=== PATIENT | male | born 1955 | race Caucasian/White ===

== ENCOUNTER 2017-03-08 06:50 | Inpatient (IN) | payer BC ==
[~2017-03-08] VITALS: Ht 170.2 cm; Wt 86.2 kg
[2017-03-08] MEDS ORDERED: ACETAMINOPHEN 500 MG TABLET PO ONE (07:15)
[2017-03-08] MEDS ORDERED: GABAPENTIN 300 MG CAPSULE PO ONE (07:15)
[2017-03-08] MEDS ORDERED: CELECOXIB 200 MG CAPSULE PO ONE (07:15)
[2017-03-08] MEDS ORDERED: CEFAZOLIN SOD 2 GM in D5W 50 ML IV ONE (07:15)
[2017-03-08] MEDS ORDERED: TRANEXAMIC ACID 650 MG TABLET PO ONE (07:15)
[2017-03-08] MEDS ORDERED: oxyCODONE HCL 10 MG TAB.ER.12H PO ONE ×2 (07:15→07:36)
[2017-03-08] MEDS ORDERED: ACETAMINOPHEN 500 MG TABLET ONE (07:35)
[2017-03-08] MEDS ORDERED: CELECOXIB 200 MG CAPSULE ONE (07:44)
[2017-03-08] MEDS ORDERED: GABAPENTIN 300 MG CAPSULE ONE (07:44)
[2017-03-08] MEDS ORDERED: TRANEXAMIC ACID 650 MG TABLET ONE (07:44)
[2017-03-08] MEDS ORDERED: AMLO2.5T2 PO (08:33)
[2017-03-08] MEDS ORDERED: LISI-600 PO (08:33)
[2017-03-08] MEDS ORDERED: ROPIVACAINE 0.2% 550 ML INJ SCH (09:22)
[2017-03-08] MEDS ORDERED: DIPHENHYDRAMINE HCL 50 MG CAPSULE PO PRN (09:30)
[2017-03-08] MEDS ORDERED: SENNOSIDES 8.6 MG TABLET PO PRN (09:30)
[2017-03-08] MEDS ORDERED: PROMETHAZINE HCL 25 MG/ML AMP IVP PRN (09:30)
[2017-03-08] MEDS ORDERED: POLYMYXIN 500,000/BACIT.10,000 UNITS in NS IRR 1 L IR ONE (09:44)
[2017-03-08] MEDS ORDERED: LR 1,000 ML IV ONE (11:51)
[2017-03-08] MEDS ORDERED: NALBUPHINE HCL 10 MG/ML AMP IVP PRN (12:00)
[2017-03-08] MEDS ORDERED: fentaNYL CITRATE/PF 100 MCG/2 ML AMP IVP PRN ×2 (12:00→17:45)
[2017-03-08] MEDS ORDERED: KETOROLAC TROMETHAMINE 30 MG VIAL IM PRN (12:00)
[2017-03-08] MEDS ORDERED: NALOXONE HCL 0.4 MG/ML AMP (NARCAN) IVP PRN (12:00)
[2017-03-08] MEDS ORDERED: DIPHENHYDRAMINE INJ 50 MG/ML VIAL IVP PRN (12:00)
[2017-03-08] MEDS ORDERED: ePHEDrine sulfate 50 MG/ML VIAL IVP PRN (12:00)
[2017-03-08] MEDS ORDERED: ONDANSETRON HCL 4 MG/2 ML VIAL IVP PRN ×2 (12:00)
[2017-03-08 13:45] VITALS: BP_SYST 122
[2017-03-08] MEDS: oxyCODONE HCL 5 MG TABLET PO PRN (14:03)
[2017-03-08] MEDS: D5LR 1,000 ML IV SCH ×2 (14:05→21:40)
[2017-03-08] MEDS: CEFAZOLIN 1 GM IVPB PREMIX 50 ML IV SCH ×2 (15:07→21:40)
[2017-03-08] MEDS: ACETAMINOPHEN 500 MG TABLET PO SCH ×2 (15:08→20:31)
[2017-03-08 15:50] VITALS: BP_SYST 122
[2017-03-08] MEDS: KETOROLAC TROMETHAMINE 30 MG VIAL IVP PRN (16:44)
[2017-03-08 17:18] VITALS: BP_SYST 110
[2017-03-08] MEDS: MORPHINE 4 MG/ML INJ. SYRINGE IVP PRN (17:52)
[2017-03-08] MEDS: RIVAROXABAN 10 MG TABLET PO SCH (17:53)
[2017-03-08 20:00] VITALS: BP_SYST 114
[2017-03-08] MEDS: CELECOXIB 200 MG CAPSULE PO SCH (20:29)
[2017-03-08] MEDS: GABAPENTIN 300 MG CAPSULE PO SCH (20:30)
[2017-03-09 01:25] VITALS: BP_SYST 121
[2017-03-09] MEDS: KETOROLAC TROMETHAMINE 30 MG VIAL IVP PRN ×2 (05:07→12:06)
[2017-03-09] MEDS: CEFAZOLIN 1 GM IVPB PREMIX 50 ML IV SCH (05:08)
[2017-03-09] MEDS: D5LR 1,000 ML IV SCH ×2 (05:11→20:52)
[2017-03-09 05:36] VITALS: BP_SYST 118
[2017-03-09 06:37] LABS: CALCIUM 8.3 mg/dL (8.4-11.0); CREATININE 1.01 mg/dL (0.55-1.30); POTASSIUM 3.9 mmol/L (3.5-5.1)
[2017-03-09 06:40] LABS: BASOPHILS # (AUTO) 0.1 K/uL (0.0-0.2); BASOPHILS % (AUTO) 0.5 % (0.0-2.0); EOSINOPHILS # (AUTO) 0.1 K/uL (0.0-0.4); EOSINOPHILS % (AUTO) 1.1 % (0.0-4.0); HEMOGLOBIN 12.7 g/dL (12.0-16.0); LYMPHOCYTES # (AUTO) 1.6 K/uL (1.0-5.5); LYMPHOCYTES % (AUTO) 14.6 % (20.5-51.5); MEAN CORPUSCULAR HEMOGLOBIN 31 pg (27-31); MEAN CORPUSCULAR HGB CONC 34 % (32-36); MEAN CORPUSCULAR VOLUME 92 fL (79.0-98.0); MONOCYTES % (AUTO) 8.6 % (1.7-9.3); NEUTROPHILS # (AUTO) 8.3 K/uL (1.8-7.7); NEUTROPHILS % (AUTO) 75.2 % (40.0-70.0); PLATELET COUNT (AUTO) 177 K/uL (130-430); RED BLOOD CELL COUNT(AUTO) 4.05 MIL/uL (4.2-6.2); RED CELL DISTRIBUTION WIDTH 12.7 % (9.0-15.0); WHITE BLOOD COUNT (AUTO) 11.1 K/uL (4.8-10.8)
[2017-03-09] MEDS: CELECOXIB 200 MG CAPSULE PO SCH ×2 (08:14→20:50)
[2017-03-09] MEDS: ACETAMINOPHEN 500 MG TABLET PO SCH ×3 (08:14→20:51)
[2017-03-09] MEDS: amLODIPine BESYLATE 5 MG TABLET PO SCH (08:15)
[2017-03-09] MEDS: LISINOPRIL 20 MG TABLET PO SCH (08:15)
[2017-03-09 09:31] VITALS: BP_SYST 143
[2017-03-09 12:19] VITALS: BP_SYST 131
[2017-03-09] MEDS: ONDANSETRON HCL 4 MG/2 ML VIAL IVP PRN (12:49)
[2017-03-09 16:12] VITALS: BP_SYST 146
[2017-03-09] MEDS: RIVAROXABAN 10 MG TABLET PO SCH (17:44)
[2017-03-09] MEDS: oxyCODONE HCL 5 MG TABLET PO PRN ×2 (17:45→21:55)
[2017-03-09 20:00] VITALS: BP_SYST 109
[2017-03-09] MEDS: GABAPENTIN 300 MG CAPSULE PO SCH (20:51)
[2017-03-10 00:21] VITALS: BP_SYST 124
[2017-03-10] MEDS: KETOROLAC TROMETHAMINE 30 MG VIAL IVP PRN ×2 (00:39→11:25)
[2017-03-10] MEDS: D5LR 1,000 ML IV SCH (01:22)
[2017-03-10] MEDS: MORPHINE 4 MG/ML INJ. SYRINGE IVP PRN ×2 (01:45→17:40)
[2017-03-10] MEDS: ONDANSETRON HCL 4 MG/2 ML VIAL IVP PRN ×2 (01:45→17:36)
[2017-03-10 05:46] VITALS: BP_SYST 129
[2017-03-10 06:36] LABS: CALCIUM 7.9 mg/dL (8.4-11.0); CREATININE 1.02 mg/dL (0.55-1.30); POTASSIUM 3.9 mmol/L (3.5-5.1)
[2017-03-10 07:01] LABS: BASOPHILS % (AUTO) 0.3 % (0.0-2.0); EOSINOPHILS # (AUTO) 0.5 K/uL (0.0-0.4); EOSINOPHILS % (AUTO) 4.4 % (0.0-4.0); HEMOGLOBIN 11.3 g/dL (14.0-18.0); LYMPHOCYTES # (AUTO) 1.7 K/uL (1.0-5.5); LYMPHOCYTES % (AUTO) 15.7 % (20.5-51.5); MEAN CORPUSCULAR HEMOGLOBIN 31 pg (27-31); MEAN CORPUSCULAR HGB CONC 34 % (32-36); MEAN CORPUSCULAR VOLUME 90 fL (79.0-98.0); MONOCYTES # (AUTO) 1.4 K/uL (0.0-1.0); MONOCYTES % (AUTO) 13.2 % (1.7-9.3); NEUTROPHILS # (AUTO) 6.9 K/uL (1.8-7.7); NEUTROPHILS % (AUTO) 66.4 % (40.0-70.0); PLATELET COUNT (AUTO) 163 K/uL (130-430); RED BLOOD CELL COUNT(AUTO) 3.67 MIL/uL (4.2-6.2); RED CELL DISTRIBUTION WIDTH 12.9 % (9.0-15.0); WHITE BLOOD COUNT (AUTO) 10.5 K/uL (4.8-10.8)
[2017-03-10 08:00] VITALS: BP_SYST 145
[2017-03-10] MEDS: amLODIPine BESYLATE 5 MG TABLET PO SCH (08:08)
[2017-03-10] MEDS: CELECOXIB 200 MG CAPSULE PO SCH ×2 (08:08→21:12)
[2017-03-10] MEDS: LISINOPRIL 20 MG TABLET PO SCH (08:09)
[2017-03-10] MEDS: ACETAMINOPHEN 500 MG TABLET PO SCH ×3 (08:09→21:13)
[2017-03-10] MEDS ORDERED: ROPIVACAINE HCL/PF 5 MG/ML 0.5% 30 ML VIAL INJ ONE (09:31)
[2017-03-10] MEDS ORDERED: DEXAMETHASONE SOD PHOSPHATE 4 MG/ML VIAL IVP ONE (09:31)
[2017-03-10] MEDS ORDERED: EPINEPHrine 1 MG/ML AMP IVP ONE (09:31)
[2017-03-10] MEDS ORDERED: TRANEXAMIC ACID 1,000 MG/10 ML VIAL IV ONE (09:31)
[2017-03-10] MEDS ORDERED: MORPHINE SULFATE 10MG/10ML PF AMP EP ONE (09:31)
[2017-03-10] MEDS ORDERED: VANCOMYCIN HCL 1000 MG/VIAL IV ONE (09:31)
[2017-03-10] MEDS ORDERED: MIDAZOLAM HCL 5 MG/5 ML VIAL IVP ONE (09:31)
[2017-03-10] MEDS ORDERED: LR 1,000 ML IV.SOLN IV ONE (09:31)
[2017-03-10] MEDS ORDERED: SEVOFLURANE 15 MIN GAS INH ONE (09:31)
[2017-03-10] MEDS ORDERED: KETOROLAC TROMETHAMINE 30 MG VIAL IVP ONE (09:31)
[2017-03-10] MEDS ORDERED: NS 100 ML BAG IV ONE (09:31)
[2017-03-10] MEDS ORDERED: PROPOFOL 200MG/ 20ML VIAL (DIPRIVAN) IV ONE (09:31)
[2017-03-10] MEDS ORDERED: ROPIVACAINE 0.2% (NAROPIN) PF SOLUTION 100 ML BOTTLE EP ONE (09:31)
[2017-03-10] MEDS ORDERED: fentaNYL CITRATE/PF 100 MCG/2 ML AMP IVP ONE (09:31)
[2017-03-10] MEDS ORDERED: LIDOCAINE 2%, 20 ML MDV INJ ONE (09:31)
[2017-03-10 12:25] VITALS: BP_SYST 139
[2017-03-10] MEDS: oxyCODONE HCL 5 MG TABLET PO PRN ×2 (14:58→21:12)
[2017-03-10 16:20] VITALS: BP_SYST 142
[2017-03-10] MEDS: RIVAROXABAN 10 MG TABLET PO SCH (17:39)
[2017-03-10 20:00] VITALS: BP_SYST 135
[2017-03-10] MEDS: GABAPENTIN 300 MG CAPSULE PO SCH (21:12)
[2017-03-11 00:53] VITALS: BP_SYST 110
[2017-03-11 05:54] VITALS: BP_SYST 106
[2017-03-11 06:41] LABS: BASOPHILS # (AUTO) 0.1 K/uL (0.0-0.2); BASOPHILS % (AUTO) 0.5 % (0.0-2.0); EOSINOPHILS # (AUTO) 0.5 K/uL (0.0-0.4); EOSINOPHILS % (AUTO) 3.8 % (0.0-4.0); HEMATOCRIT 30.9 % (36-54); HEMOGLOBIN 10.5 g/dL (14.0-18.0); LYMPHOCYTES # (AUTO) 1.8 K/uL (1.0-5.5); LYMPHOCYTES % (AUTO) 14.2 % (20.5-51.5); MEAN CORPUSCULAR HEMOGLOBIN 31 pg (27-31); MEAN CORPUSCULAR HGB CONC 34 % (32-36); MEAN CORPUSCULAR VOLUME 91 fL (79.0-98.0); MONOCYTES # (AUTO) 1.3 K/uL (0.0-1.0); MONOCYTES % (AUTO) 10.1 % (1.7-9.3); NEUTROPHILS # (AUTO) 8.9 K/uL (1.8-7.7); NEUTROPHILS % (AUTO) 71.4 % (40.0-70.0); PLATELET COUNT (AUTO) 173 K/uL (130-430); RED BLOOD CELL COUNT(AUTO) 3.41 MIL/uL (4.2-6.2); RED CELL DISTRIBUTION WIDTH 12.5 % (9.0-15.0); WHITE BLOOD COUNT (AUTO) 12.6 K/uL (4.8-10.8)
[2017-03-11 07:01] LABS: CALCIUM 7.8 mg/dL (8.4-11.0); CREATININE 1.28 mg/dL (0.55-1.30); POTASSIUM 3.8 mmol/L (3.5-5.1)
[2017-03-11] MEDS: D5LR 1,000 ML IV SCH (07:22)
[2017-03-11 08:00] VITALS: BP_SYST 110
[2017-03-11] MEDS: oxyCODONE HCL 5 MG TABLET PO PRN (09:25)
[2017-03-11] MEDS: CELECOXIB 200 MG CAPSULE PO SCH (09:26)
[2017-03-11] MEDS: LISINOPRIL 20 MG TABLET PO SCH (09:26)
[2017-03-11] MEDS: amLODIPine BESYLATE 5 MG TABLET PO SCH (09:27)
[2017-03-11] MEDS: ACETAMINOPHEN 500 MG TABLET PO SCH (09:36)
[2017-03-11 11:54] VITALS: BP_SYST 106
[2017-03-11 12:05] VITALS: BP_SYST 118
== END 2017-03-11 12:25 | disposition home or self-care (01) | DRG 468 ==
LOC: EDSEX 06:50 → SMU 06:50 → STU 13:32 → SMU 03-10 20:41
PROVIDERS: ADMIT Orthopaedic Surgery; ATTEND Orthopaedic Surgery
PROC: 0SPW0JZ Removal of Synthetic Substitute from Left Knee Joint, Tibial Surface, Open Approach (ICD-10-PCS; 2017-03-08)
PROC: 0SRD0J9 Replacement of Left Knee Joint with Synthetic Substitute, Cemented, Open Approach (ICD-10-PCS; principal; 2017-03-08 09:45)
DX: M17.12 Unilateral primary osteoarthritis, left knee (principal); I10 Essential (primary) hypertension; Z96.652 Presence of left artificial knee joint
CPT/HCPCS: 36415; 80048; 85025; 87081; 88305; 88311; 94010; 97110-GP; 97116-GP; 97530-GP; C1713; C1776; J0171; J0690; J1100; J1885; J2001; J2250; J2270; J2274; J2405; J2550; J2704; J2795; J3010; J3370; J3490; J7060; J7120; Q0163